=== PATIENT | male | born 1955 | race Caucasian/White ===

== ENCOUNTER 2019-03-28 14:03 | Inpatient (IN) ==
--- NOTE | 2019-03-28 14:31 | PROVIDER DOCUMENTATION ---
HPI-EENT General - General Chief Complaint: Sore Throat Stated Complaint: MED SURG REFERRED--SOB Time Seen by Provider: 03/28/19 14:16 Source: patient Allergies/Adverse Reactions: Patient Allergies Allergy/AdvReac Type Severity Reaction Status Date / Time Sulfa (Sulfonamide Allergy Severe eyes and Verified 02/11/16 23:30 Antibiotics) skin turns yellow, N&v Home Medications: Home Medication List Medication Instructions Recorded Confirmed Last Taken Type Aspirin EC 81 mg PO DAILY 02/24/13 03/28/19 02/12/13 History Azathioprine 50 mg PO HS 02/24/13 03/28/19 02/24/13 22:00 History Diazepam [Valium] 10 mg PO HS 02/24/13 03/28/19 02/22/13 22:00 History Omeprazole Magnesium [Prilosec] 10 mg PO QAM 02/24/13 03/28/19 02/24/13 08:00 History Oxycodone E.r. [Oxycontin] 15 mg PO Q6H PRN 02/24/13 03/28/19 02/24/13 13:30 History Prednisone 10 mg PO QAM 02/24/13 03/28/19 02/24/13 08:00 History Apixaban [Eliquis] 5 mg PO QAM 03/28/19 03/28/19 Unknown History Gabapentin 300 mg PO Q8HR 03/28/19 03/28/19 Unknown History Metoprolol [Lopressor] 5 mg PO QAM 03/28/19 03/28/19 Unknown History ROSUVAstatin [Crestor] 20 mg PO HS 03/28/19 03/28/19 Unknown History - History of Present Illness-EENT General Nature of Presenting Problem: [id number] presents to the ER with c/o sore throat and difficulty swallowing. He states that his throat and the right side of his neck began to swell approx 3 days ago and has progressively gotten worse each day. He was evaluated at med- surg this morning and sent here for further evaluation for possible retropharyngeal abscess. He denies any fever or difficulty breathing at this time. He does report more difficulty with sputum and swallowing when laying flat. Quality of Pain: reports: sharp Severity: reports: moderate Onset/Duration: reports: 3 days ago Timing: reports: getting worse Prearrival Treatment: Initiated no prearrival treatment Associated Symptoms: reports: facial pain/swelling, fever Locality of Occurance: Home Similar Symptoms Previously?: No Recently seen or treated by another doctor?: No Review of Systems - Adult - REVIEW OF SYSTEMS - ADULT Constitutional: reports: see HPI. denies: chills, fever Eyes: reports: no symptoms reported Ears, Nose, Mouth & Throat: reports: see HPI, hoarseness, throat pain, throat swelling. denies: mouth/dental pain Cardiovascular: reports: no symptoms reported. denies: chest pain, syncope Respiratory: reports: no symptoms reported. denies: cough, dyspnea on exertion, pleurisy, shortness of breath, wheezing Gastrointestinal: reports: no symptoms reported. denies: abdominal pain, nausea, vomiting Genitourinary: reports: no symptoms reported Musculoskeletal: reports: no symptoms reported Integumentary: reports: no symptoms reported Neurological: reports: no symptoms reported Psychiatric: reports: no symptoms reported Endocrine: reports: no symptoms reported Hematologic/Lymphatic: reports: no symptoms reported Allergic/Immunologic: reports: no symptoms reported All Other Systems: Reviewed and Negative Past History - Adult - PAST MEDICAL HISTORY-ADULT Review of Records: reports: Old Records Reviewed, Nursing Assessment Review, Medications Reviewed, Social history reviewed & non-contributory. Major Childhood Illnesses: reports: denies history Cardiovascular: reports: denies history Respiratory: reports: denies history Gastrointestinal: reports: denies history Obstetrical/Gynecological: reports: denies history Genitourinary: reports: kidney disease Musculoskeletal: reports: denies history Neurological: reports: denies history Endocrine/Immune: reports: denies history Other Conditions: reports: MRSA Additional History: Hypoglycemia - PRIOR SURGERIES/PROCEDURES Surgical/Procedure History: reports: other (kidney transplant) - PRIOR HOSPITALIZATIONS Prior Hospitalizations: reports: for other non-related - IMMUNIZATION STATUS Childhood Immunizations: See Nurse Assessment Flu Vaccine: See Nurse Assessment - FAMILY HISTORY Family History: reviewed, not pertinent - SOCIAL HISTORY Smoking: cigarettes, less than 1 pack/day Provider spent 3-5 mins advising pt. on dangers of tobacco.: Discussed manners to quit use, and f/u contacts for add'l counseling. Substance Use: denies Living Situation: family Physical Exam- EENT - Physical Exam EENT Initial Vital Signs Reviewed: Yes General Appearance: mild distress Eye Exam: bilateral eye: normal inspection, PERRL, EOMI Ear Exam: bilateral ear: auricle normal, canal normal, TM normal Nasal Exam: normal inspection Throat Exam: mandibular swelling (right side), pharynx swelling (right side), pharynx tenderness, voice changes (muffled) Neck: lymphadenopathy (right side), trachial deviation (mild trachial deviation to the left), tender lateral (right sided tenderness and moderate swelling to the anterior neck and jaw), other (Odynophagia noted) Respiratory: lungs clear, normal breath sounds Cardiovascular: regular rate, rhythm Abdominal Exam: non tender, soft Back Exam: no vertebral tenderness Extremity: non-tender, normal gait Integumentary: normal turgor, warm/dry Psych/Mental Status: oriented x 3 Progress - PLAN OF CARE/RESULTS Progress/Plan/Lab Results: Vital Signs - 8 hr 03/28/19 14:07 Temperature 97.8 F Pulse Rate 67 Respiratory Rate 18 Blood Pressure 132/83 O2 Sat by Pulse Oximetry 97 Laboratory Results - last 24 hr 03/28/19 03/28/19 14:30 14:30 WBC 13.83 H RBC 4.27 L Hgb 13.3 L Hct 40.4 L MCV 94.6 MCH 31.1 H MCHC 32.9 L RDW Std Deviation 13.0 Plt Count 262 MPV 9.0 Immature Gran % (Auto) 0.3 Neut % (Auto) 73.4 Lymph % (Auto) 15.1 L [place] % (Auto) 10.9 H Eos % (Auto) 0.1 Baso % (Auto) 0.2 Immature Gran # (Auto) 0.04 Neut # (Auto) 10.14 H Lymph # (Auto) 2.09 [place] # (Auto) 1.51 H Eos # (Auto) 0.02 Baso # (Auto) 0.03 ESR 65 H Sodium 137 Potassium 4.5 Chloride 101 Carbon Dioxide 27 Anion Gap 9 BUN 8 Creatinine 0.9 Estimated GFR/1.73 m2 > 60 BUN/Creatinine Ratio 9 Glucose 106 H Calculated Osmolality 273 Calcium 9.3 Total Bilirubin 0.56 AST 12 ALT 9 L Alkaline Phosphatase 57 Total Protein 7.0 Albumin 3.9 Globulin 3.1 Albumin/Globulin Ratio 1.3 Orders Category Date Time Status Laceration Set up DIRECTED Care 03/28/19 17:[address] NECK W/CONTRAST [CT] Stat Exams 03/28/19 14:16 Completed CBC WITH ELECTRONIC DIFF [HEME] Stat Lab 03/28/19 14:30 Completed COMPREHENSIVE METABOLIC PANEL [CHEM] Stat Lab 03/28/19 14:30 Completed SED RATE [HEME] Stat Lab 03/28/19 14:30 Completed Lidocaine 1%/Epi 1:100,000 [Xylocaine 1%/Epi 1:100,000] Med 03/28/19 17:47 Discontinued 20 ml INJ NOW ONE Tetrcain/Bnzcain/Butambn [place] [Cetacaine [place]] Med 03/28/19 17:47 Disconti nued 1 gm TOP NOW ONE Dr Winn consulted for treatment of abscess. Recommendations for Inpatient due to patient's immunocompromised state. Dr Siddiqi to bedside for I&D. Recommendations for 23hr admission for IV antibiotics and follow up with him next week. Result Diagrams: 03/28/19 14:30 03/28/19 14:30 - REASSESSMENT Reassessment #1 Time Reassessed: 14:00 Status: unchanged - CT/MRI 1 CT Study: Neck Impression: Abnormal (COMMENT: There are no previous studies available for comparison. The nasopharynx is unremarkable. The paranasal sinuses as seen are clear. There is enlargement of both palatine tonsils particularly the right where there is a fluid collection with some ring enhancement seen best on image 76 measuring over 11 mm in diameter. There are smaller areas of lucency in both tonsillar pillars which may represent smaller abscesses. The submandibular glands are symmetrical in appearance. There are some prominent jugular nodes bilaterally with a right-sided node measuring almost 13 mm in greatest dimension. There is an enhancing nodule in the deep portion of the left parotid gland. This measures 17 mm in diameter and is well-circumscribed. This may represent an enlarged node. IMPRESSION: Tonsillitis with bilateral small abscesses including a larger abscess on the right. Adenopathy as described.), See EMR Report - CONSULTS/PCP/HOSPITALIST Notification #1 *Consult/PCP/Hospitalist*: KATHERINE barry Time Discussed: 17:20 Reason/Comments: tonsillitis with bilateral abscess Consult Disposition: Admit (consult ENT) #2 Consult: Dr Siddiqi Time Discussed: 17:45 #3 Consult: Dr Ziegler Time Discussed: 19:06 Reason/Comments: tonsillitis with bilateral abscess Consult Disposition: Will see in ED, Admit Departure - Departure Date of Disposition Decision: 03/28/19 Time of Disposition Decision: 19:06 DIAGNOSIS: Tonsillar abscess, Tonsillitis Disposition: ADMITTED INPATIENT 09 Certified Medical Emergency: Emergent Condition: Critical Additional Freetext Instructions: ED Follow Up Instructions: You have been treated by a care provider in the Emergency Department. These in structions are being provided to you so you can have an understanding of how to care for yourself upon discharge. Upon discharge from the Emergency Department, you are responsible for making arrangements for follow-up care by a physician of your choice. Take all prescribed medications as directed. Return to the Emergency Department immediately for any new or worsening symptoms. You may call the Physician Referral phone number at [phone] to obtain a list of Physicians who are taking new patients. Referrals and Follow-Ups: Solomon Green MD [Primary Care Provider] - - Critical Care Note This patient required my direct & personal management of CC.: Yes Total Time (mins): 43 Critical Care Statement: This patient required my direct personal management to treat or rule out processes, the absence of which, could potentiallly result in sudden, clinically significant life or limb threatening deterioration. Attestation - Physician/ KELLE Attestation Patient care was provided by Advanced Practice Provider:: Yes Advanced Practice Provider:: Keon Quintanilla Advanced Practice Provider documentation review:: The Mid-level provider documentation, treatment plan and medical decision making was reviewed by the physician who agrees with all treatment and medical decision making by the [facility]. The physician spent face to face time with patient:: Yes (Dr Winn, Dr Siddiqi) Advanced Practice Provider documentation review:: Supervising physician onsite and consulted in the evaluation and care of this patient. The physician did have a face to face encounter with the patient.
[2019-03-28 14:43] LABS: HEMATOCRIT 40.4 % (42.0-52.0); HEMOGLOBIN 13.3 g/dL (14.0-18.0); MCH 31.1 PG (27-31); MCHC 32.9 g/dL (33-37); MCV 94.6 FL (81-99); RBC 4.27 XMIL (4.7-6.1); WBC 13.83 X1000 (4.8-10.8)
[2019-03-28 14:44] LABS: BASO# 0.03 X1000 (0.0-0.2); BASO% 0.2 % (0.0-0.8); EOS# 0.02 X1000 (0.0-0.7); EOS% 0.1 % (0.0-10.0); IMM GRAN# 0.04 X1000 (0.0-0.04); IMM GRAN% 0.3 % (0.0-0.5); LYMPH# 2.09 X1000 (1.2-3.4); LYMPH% 15.1 % (20.5-51.1); MONO# 1.51 X1000 (0.11-0.59); MONO% 10.9 % (1.7-9.3); NEUT# 10.14 X1000 (1.4-6.5); NEUT% 73.4 % (42.2-75.2); PLT 262 X1000 (130-400)
[2019-03-28 14:59] LABS: AGAP 9; ALB/GLOB RATIO 1.3; ALBUMIN 3.9 g/dL (3.5-5.0); ALKALINE PHOSPHATASE 57 U/L (32-122); BUN 8 mg/dL (8-22); CALCIUM 9.3 mg/dL (8.8-10.2); CHLORIDE 101 mmol/L (98-107); COSMO 273; CREATININE 0.9 mg/dL (0.7-1.2); ESTIMATED GFR > 60; GLUCOSE 106 mg/dL (70-104); GOT 12 U/L (10-34); GPT 9 U/L (10-44); POTASSIUM 4.5 mmol/L (3.5-5.1); SODIUM 137 mmol/L (136-145); TCO2 27 mmol/L (25-35); TOTAL BILIRUBIN 0.56 mg/dL (0.20-1.00)
--- NOTE | 2019-03-28 15:45 | Diag Imaging Result Doc PS360 ---
EXAM: CT NECK W/CONTRAST 03/28/2019 HISTORY: r/o retropharyngeal abscess TECHNIQUE: This exam was performed using automated exposure control, adjustment of mA or kV according to patient size, and/or use of iterative reconstruction technique. COMMENT: There are no previous studies available for comparison. The nasopharynx is unremarkable. The paranasal sinuses as seen are clear. There is enlargement of both palatine tonsils particularly the right where there is a fluid collection with some ring enhancement seen best on image 76 measuring over 11 mm in diameter. There are smaller areas of lucency in both tonsillar pillars which may represent smaller abscesses. The submandibular glands are symmetrical in appearance. There are some prominent jugular nodes bilaterally with a right-sided node measuring almost 13 mm in greatest dimension. There is an enhancing nodule in the deep portion of the left parotid gland. This measures 17 mm in diameter and is well-circumscribed. This may represent an enlarged node. IMPRESSION: Tonsillitis with bilateral small abscesses including a larger abscess on the right. Adenopathy as described. Electronically signed by José Miguel Roland 03/28/2019 3:43 PM
[2019-03-28 15:47] LABS: SED RATE 65 mm/hr (0-15)
[2019-03-28] MEDS ORDERED: CETACAINE SPRAY TOP ONE (17:47)
[2019-03-28] MEDS ORDERED: XYLOCAINE 1%/EPI 1:100,000 INJ ONE (17:47)
[2019-03-28] MEDS ORDERED: ZOSYN 3.375 GM in NS 50 ML IV ONE (19:07)
[2019-03-28] MEDS ORDERED: OXY IR PO PRN (21:30)
[2019-03-28] MEDS ORDERED: ZOFRAN IV PRN (21:33)
[2019-03-28] MEDS ORDERED: NICODERM PATCH TD PRN (22:20)
[2019-03-28] MEDS ORDERED: NS 1,000 ML IV SCH (22:30)
[2019-03-28] MEDS: OXY IR PO PRN (23:15)
[2019-03-29] MEDS: IMURAN PO SCH ×2 (00:34→20:11)
[2019-03-29] MEDS: TOPROL XL PO SCH ×2 (00:34→20:11)
[2019-03-29] MEDS: ZOSYN 4.5 GM in NS 100 ML IV SCH ×3 (03:49→20:11)
--- NOTE | 2019-03-29 05:23 | HISTORY AND PHYSICAL ---
PRIMARY CARE PROVIDER: Dr. Green. NURSE TECH: The Renal Transplant Clinic at [facility] in [place]. DATE AND TIME: 03/28/2019 at 1945. CHIEF COMPLAINT: Sore throat. HISTORY OF PRESENT ILLNESS: Mr. Montoya s a 63-year-old male with a past medical history most notable for renal transplant, coronary artery disease, COPD, atrial fibrillation/atrial flutter and chronic back pain. The patient states that starting approximately 3 days ago he did at first just begin to have a sore throat for the first 2 days. He actually stated that drinking hot coffee easily relieved his sore throat though he states that on the 3rd day drinking hot coffee did not relieve his sore throat. He complained of pain in his throat and the right side of his neck which also did have some slight swelling as well. Secondary to his symptoms, he did present to the med/surg clinic who did send him here for further evaluation of a possible retropharyngeal abscess. The patient denies any headache, dizziness, chest pain, shortness of breath, nausea, vomiting, or diarrhea. He denies any abdominal pain. He denies any dysuria or pain, numbness, tingling or swelling in extremities. The patient at this time is only reporting the pain in his throat and the right side of his neck. He is not having any difficulty breathing. He is able to manage his oral secretions well. He denies any fever, body aches, or chills at present. Upon evaluation in the ER, the patient was noted to have some mild leukocytosis with a white blood cell count of 13,830. We did perform a CT of the neck with contrast which did show that he had a tonsillitis with bilateral small abscesses including a larger abscess on the right. Given these findings, we did consult ENT specialist. Dr. Siddiqi did see the patient in the ER and did perform a bedside incision and drainage of the patient's right tonsillar abscess. He did recommend the patient be placed on Zosyn 4.5 g IV q.8 hours. The patient will be placed for admission for observation. REVIEW OF SYSTEMS: A 14 point review of systems was conducted with the patient and all were negative except for pertinent positives mentioned in above HPI. PAST MEDICAL HISTORY: 1. 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 The patient reports that his renal transplant was in 1979. He is followed by the Renal Transplant Clinic at [facility] in [place]. 2. Coronary artery disease status post stent placement x1. 3. History of atrial fibrillation/atrial flutter, on anticoagulation with Eliquis. 4. COPD. 5. Nicotine dependence. 6. Chronic back pain secondary to a history of thoracic fractures. 7. Hyperlipidemia. PAST SURGICAL HISTORY: 1. Placement of a left arm fistula and removal. The patient reports that he was on dialysis for a period of approximately 8 months. 2. Renal transplant in 1979. 3. Cardiac stent placement x1. SOCIAL HISTORY: The patient is a current every day smoker. He does smoke 1 to 2 packs per day and has done so for many years. He denies any alcohol or illicit drug use. FAMILY HISTORY: Positive for his mother having a history of adrenal cancer. His father had a history of unknown cancer and was an alcoholic. He does have 1 brother who does have a history of heart disease and has undergone a coronary artery bypass graft. ALLERGIES: Patient has allergies to sulfa. HOME MEDICATIONS: 1. Eliquis 5 mg p.o. b.i.d. 2. Aspirin 81 mg p.o. daily. 3. Azathioprine 50 mg p.o. at bedtime. 4. Valium 10 mg p.o. at bedtime. 5. Gabapentin 300 mg p.o. q.8 hours. 6. Toprol-XL 25 mg p.o. daily. 7. Prilosec 10 mg p.o. q.a.m. 8. OxyIR 15 mg p.o. q.6 hours p.r.n. for pain. 9. Prednisone 10 mg p.o. q.a.m. 10. Crestor 20 mg p.o. at bedtime. DIAGNOSTIC DATA: White blood cell count is 13,830, hemoglobin 13.3, hematocrit is 40.4, platelet count is 262,000. Sodium 137, potassium 4.5, chloride 101, serum bicarbonate is 27, BUN 8, creatinine 0.9 with GFR that is greater than 60, glucose is 106, calcium 9.3. Liver function tests are within normal limits. CT of the neck with contrast showed tonsillitis with bilateral small abscesses including a larger abscess on the right. There is also adenopathy noted as well. Please see full CT report for detailed findings. PHYSICAL EXAMINATION: VITAL SIGNS: Temperature 97.9 degrees, heart rate 80, respirations 18, blood pressure is 123/76, oxygen saturation is 95% on room air. GENERAL: Mr. Montoya is a pleasant 63-year-old male. He was resting in the ER stretcher. He was in no acute distress. He was in no respiratory distress. He was sitting up in bed and was able to manage his oral secretions. He was alert and oriented x4. He is able to answer questions appropriately and follow commands appropriately. HEENT: Head is atraumatic, normocephalic. Pupils are equal, round, reactive to light, were 3 mm bilaterally and brisk. Oral mucosa was moist. The patient does have swelling noted to his right tonsil upon examination. He is status post a bedside incision and drainage of his right tonsillar abscess by Dr. Siddiqi just prior to my examination. There was some blood noted to the right tonsil though there was not any active bleeding present. The patient did have swelling and tenderness noted to his tonsillar and submental lymph nodes on the right. NECK: Supple. Trachea is midline. CARDIOVASCULAR: Patient has S1-S2 present. No murmurs, gallops, rubs appreciated with an irregularly irregular rhythm and irregular rate. PULMONARY: Patient has symmetrical chest expansion bilaterally. Lung sounds are clear to auscultation in bilateral full lockett. ABDOMEN: Soft, nontender, nondistended. EXTREMITIES: No cyanosis or edema noted. Pulse, motor, and sensory were intact in all extremities. Radial and pedal pulses were 2+ bilaterally. INTEGUMENTARY: The patient's skin is pink, warm, and dry. NEUROLOGICAL: Patient is alert and oriented to person, place, time, and situation. He is able to move all extremities. There were no focal neurological deficits noted. ASSESSMENT AND PLAN: 1. Tonsillitis. 2. Bilateral tonsillar abscess status post bedside incision and drainage of right tonsillar abscess by Dr. Siddiqi, the ENT specialist. For treatment of numbers 1 and 2, we will continue to monitor the patient's respiratory status closely though previously and at present the patient has denied any respiratory complications. He is managing his oral secretions without difficulty. We will follow diet recommendations of ice chips and water to be advanced to a soft diet as tolerated. We also have followed recommendations from Dr. Siddiqi to place the patient on Zosyn 4.5 g IV q.8 hours. The patient's renal function is within normal limits at this time. We will monitor this closely given his history of renal transplant. We have placed a consult with Dr. Siddiqi and we will await his further evaluation and recommendations for management. 3. History of renal transplant. We have placed a consult with Dr. Ramirez with Nephrology. We will await his evaluation and further recommendations for management. We will avoid nephrotoxic medications and renally dose medications as necessary. 4. History of atrial fibrillation/atrial flutter. We have continued the patient's metoprolol. He is on continuous telemetry and is in atrial fibrillation and atrial flutter at times though the rate is controlled in the 70s to 80s. We will hold his anticoagulation of Eliquis tonight given his recent incision and drainage, but we will start this back in the morning. 5. History of coronary artery disease status post stent placement x1. We will hold his aspirin today though we will start this back in the morning as well. 6. Chronic back pain. We have continued the patient's regularly prescribed medications for this of oxycodone and Neurontin as needed. 7. Deep vein thrombosis prophylaxis. For this evening, we will place him with SCDs though in the morning we will continue his Eliquis 5 mg p.o. b.i.d. that he has regularly prescribed. The patient has been placed on the medical floor with telemetry. He will have vital signs q.8 hours. We have implemented aspiration precautions. We will do strict intake and output, incentive spirometry. We will repeat a CBC, renal profile, and PT with INR in the morning. Further orders and recommendations pending hospital course, diagnostic studies, and physician evaluation. Dictated by KATHERINE Ward for Marcus Ziegler MD I have performed a face to face diagnostic evaluation. Labs/ Xrays reviewed. Exam- ENT- tonsilar erythema, Chest- clear. A/P- Tonsillar Abscess- Admit, NPO, IV ABX- ENT had already seen patient in ER. Dr. Ziegler cc: Marcus Ziegler MD [facility]
[2019-03-29] MEDS: PRILOSEC PO SCH (06:15)
[2019-03-29] MEDS: OXY IR PO PRN ×3 (06:18→20:11)
[2019-03-29 07:32] LABS: INR 1.16
[2019-03-29 07:46] LABS: BASO# 0.03 X1000 (0.0-0.2); BASO% 0.2 % (0.0-0.8); EOS# 0.08 X1000 (0.0-0.7); EOS% 0.6 % (0.0-10.0); HEMATOCRIT 42.5 % (42.0-52.0); HEMOGLOBIN 14.1 g/dL (14.0-18.0); IMM GRAN# 0.03 X1000 (0.0-0.04); IMM GRAN% 0.2 % (0.0-0.5); LYMPH# 2.87 X1000 (1.2-3.4); LYMPH% 22.5 % (20.5-51.1); MCH 31.4 PG (27-31); MCHC 33.2 g/dL (33-37); MCV 94.7 FL (81-99); MONO# 1.56 X1000 (0.11-0.59); MONO% 12.2 % (1.7-9.3); MPV 9.2 FL (7.4-10.4); NEUT# 8.19 X1000 (1.4-6.5); NEUT% 64.3 % (42.2-75.2); PLT 271 X1000 (130-400); RBC 4.49 XMIL (4.7-6.1); RDW 13.2 % (11.5-14.5); WBC 12.76 X1000 (4.8-10.8)
[2019-03-29 08:00] LABS: AGAP 13; BUN 9 mg/dL (8-22); CHLORIDE 102 mmol/L (98-107); COSMO 279; CREATININE 0.8 mg/dL (0.7-1.2); GLUCOSE 113 mg/dL (70-104); POTASSIUM 4.2 mmol/L (3.5-5.1); SODIUM 140 mmol/L (136-145); TCO2 25 mmol/L (25-35)
[2019-03-29 08:01] LABS: ALBUMIN 3.2 g/dL (3.5-5.0); CALCIUM 9.9 mg/dL (8.8-10.2); ESTIMATED GFR > 60; PHOSPHORUS 1.9 mg/dL (2.7-4.5)
[2019-03-29] MEDS: PREDNISONE PO SCH (08:15)
[2019-03-29] MEDS: ELIQUIS PO SCH ×2 (08:15→20:11)
[2019-03-29] MEDS: ASPIRIN EC PO SCH (08:15)
[2019-03-29 08:36] LABS: BANDS 1 % (0-1); EOS 2 % (1-10); LYMPHS 20 % (21-51); MONO 12 % (1-9); SEGS 61 % (42-75)
[2019-03-29 08:37] LABS: LARGE PLATELETS OCCASIONAL; POLYCHROM OCCASIONAL
[2019-03-29] MEDS: NEURONTIN PO PRN (08:40)
[2019-03-29] MEDS ORDERED: DECADRON IV ONE (09:38)
--- NOTE | 2019-03-29 11:57 | PROGRESS NOTE ---
DATE: 03/29/2019 SUBJECTIVE: The patient reports feeling better. Mild sore throat is still present. OBJECTIVE: Vital Signs: Temperature 98.1 degrees, heart rate 77, respiratory 16, blood pressure 116/84, O2 saturation 96% on room air. General: This is a 64-year-old male, lying in bed in no acute distress. Cardiovascular: S1, S2 heard. No murmurs, gallops, or rubs. Regular rate and rhythm. Respiratory: Clear bilaterally to auscultation. No work of breathing or using accessory muscles. HEENT: He is status post bedside incision and drainage of a right tonsillar abscess. No blood noted in the right tonsil. Neurological: The patient is alert and oriented x3. Moves all 4 extremities. LABORATORY DATA: Reviewed. ASSESSMENT AND PLAN: 1. Bilateral tonsillar abscess, status post incision and drainage. Dr. Siddiqi from ENT has drained that abscess. He is on Zosyn currently. Today, I received the note from nurse that Dr. Siddiqi said that the patient is okay to be discharged today. Considering his history of renal transplant and immunosuppression, I prefer to keep him one more day with Zosyn 4.5 grams intravenously every 8 hours, and if the patient is feeling better tomorrow, then will let him go. 2. Status post renal transplant. A consult for Nephrology has been placed. I do not think we need to do any consult at this time considering that he is having normal renal function and stable, so will continue with his current home medications. 3. History of coronary artery disease, status post stent placement. The patient is stable, not complaining of any chest pain. 4. History of atrial fibrillation and atrial flutter, stable. Heart rate is under control. 5. Disposition. If the patient's white cell count is okay and feeling better, I think this patient should be discharged tomorrow morning. cc: Kamar Salcedo MD
[2019-03-29] MEDS ORDERED: CRESTOR PO SCH (21:00)
[2019-03-29] MEDS ORDERED: VALIUM PO SCH (21:00)
[2019-03-30] MEDS: ZOSYN 4.5 GM in NS 100 ML IV SCH ×2 (04:16→12:31)
[2019-03-30] MEDS: OXY IR PO PRN ×2 (05:54→14:09)
[2019-03-30] MEDS: PRILOSEC PO SCH ×2 (05:55→06:51)
[2019-03-30 07:35] LABS: BASO# 0.02 X1000 (0.0-0.2); BASO% 0.1 % (0.0-0.8); HEMATOCRIT 41.3 % (42.0-52.0); HEMOGLOBIN 13.8 g/dL (14.0-18.0); IMM GRAN# 0.06 X1000 (0.0-0.04); IMM GRAN% 0.3 % (0.0-0.5); LYMPH# 2.32 X1000 (1.2-3.4); LYMPH% 13.4 % (20.5-51.1); MCH 31.2 PG (27-31); MCHC 33.4 g/dL (33-37); MCV 93.4 FL (81-99); MONO# 1.23 X1000 (0.11-0.59); MONO% 7.1 % (1.7-9.3); MPV 9.4 FL (7.4-10.4); NEUT# 13.69 X1000 (1.4-6.5); NEUT% 79.1 % (42.2-75.2); PLT 311 X1000 (130-400); RBC 4.42 XMIL (4.7-6.1); RDW 12.8 % (11.5-14.5); WBC 17.32 X1000 (4.8-10.8)
[2019-03-30 07:52] LABS: AGAP 13; ALBUMIN 3.2 g/dL (3.5-5.0); BUN 14 mg/dL (8-22); CALCIUM 9.8 mg/dL (8.8-10.2); CHLORIDE 106 mmol/L (98-107); COSMO 286; CREATININE 0.7 mg/dL (0.7-1.2); ESTIMATED GFR > 60; GLUCOSE 134 mg/dL (70-104); PHOSPHORUS 2.3 mg/dL (2.7-4.5); POTASSIUM 4.3 mmol/L (3.5-5.1); SODIUM 142 mmol/L (136-145); TCO2 23 mmol/L (25-35)
[2019-03-30 08:12] LABS: BANDS 4 % (0-1); LYMPHS 18 % (21-51); MONO 6 % (1-9); SEGS 72 % (42-75)
[2019-03-30] MEDS: ASPIRIN EC PO SCH (08:25)
[2019-03-30] MEDS: ELIQUIS PO SCH (08:26)
[2019-03-30] MEDS: NEURONTIN PO PRN (08:26)
[2019-03-30] MEDS: PREDNISONE PO SCH (08:26)
[2019-03-30] MEDS ORDERED: SODIUM PHOSPHATE 40 MEQ in NS 250 ML IV ONE (11:00)
[2019-03-30 12:33] VITALS: BP 110/81
--- NOTE | 2019-03-31 07:30 | DISCHARGE SUMMARY ---
ADMISSION DATE: 03/28/2019 DISCHARGE DATE: 03/30/2019 DISCHARGE DIAGNOSES: 1. Tonsillar abscess. 2. Renal transplant status post renal transplant, which is active. 3. Coronary artery disease. 4. Atrial fibrillation on Eliquis. 5. Chronic obstructive pulmonary disease. HOSPITAL COURSE: Briefly a 63-year-old male presenting with sore throat, difficulty swallowing, pain. He was found to have a white count of 13.8. He is on chronic prednisone and he had a large tonsillar abscess with bilateral smaller abscesses. ENT was consulted. Apparently, he did a bedside I and D and placed him on Zosyn, and then told him he would be discharged within 24 hours. Because of his renal transplant status, Dr. Eduardo felt we need to observe him a little bit longer, which I think was reasonable. On the day of discharge he is tolerating p.o. without difficulty. On oropharyngeal exam he does have abscess incision noted. He does have a lot of ecchymoses, kind of anterior to that progressing along the palate and around it. It is still is definitely swollen, but he is tolerating p.o. without difficulty and feel that he can go home today. Per Dr. Siddiqi's recommendations he will need antibiotic for another 2 weeks. His white count up to 17,000 today, which he is on prednisone and clinically seemed improved. No micro was done. DISCHARGE MEDICATIONS: 1. Gabapentin 300 q.8 h. 2. Aspirin 81 daily. 3. Azathioprine 50 daily. 4. Crestor 20 daily. 5. Eliquis 5 b.i.d., which I told him to hold for 24 hours. 6. Oxy IR p.r.n. 7. Prednisone 10. 8. Prilosec 10. 9. Toprol-XL 25 daily. 10. Valium 10 at bedtime. 11. Clindamycin 300 t.i.d. for 2 weeks. 12. Lactinex 1 p.o. b.i.d. for 2 weeks. DISCHARGE CONDITION: Stable. Follow up with Dr. Siddiqi within 1 week. Return for worsening pain, swelling, or difficulty swallowing, or high fevers of 101. TIME SPENT: 32 minute discharge. cc: Tello Mckeon MD
== END 2019-03-30 14:40 | disposition home or self-care (01) | DRG 133 ==
LOC: ED 14:03 → 3N 20:51 → INTOOBSV 20:51 → SUATTDRO 20:51 → OBSVTOIN 20:51
PROVIDERS: ATTEND Internal Medicine